=== PATIENT | female | born 1925 | race Caucasian/White ===

== ENCOUNTER 2017-02-20 08:39 | Inpatient (IN) | payer OTHER ==
[~2017-02-20] VITALS: Ht 165.1 cm; Wt 56.3 kg
[~2017-02-20 08:39] MED LIST: ASPIR-LOW81 MG PO; DAILY VALUE1 EACH PO; DOCUSATE SODIU100 MG PO; LASIX80 MG PO; LEVO-T75 MCG PO; POLYETHYLENE GL17 GM PO; PRINIVIL20 MG PO
[2017-02-20 09:35] LABS: HEMATOCRIT ND % (36.0-46.0); MCV ND FL (83-99); RED BLOOD COUNT ND M/uL (3.80-5.20); WHITE BLOOD COUNT ND K/uL (4.1-10.2)
[2017-02-20 09:36] LABS: EOSINOPHIL (%) ND % (0-5); MCH ND PG (29.0-34.0); MCHC ND G/DL (30.0-36.0); MONOCYTE (%) ND % (3-12); NEUTROPHIL (%) ND % (45-76); RBC DIS.WIDTH-CV ND % (11.8-14.6); RBC DIS.WIDTH-SD ND % (39-53)
[2017-02-20 09:37] LABS: BASOPHIL COUNT ND K/uL (0-0.1); EOSINOPHIL COUNT ND K/uL (0-0.3); IMMATURE GRANULOCYTE (%) ND % (0.0-0.7); IMMATURE GRANULOCYTE COUNT ND K/uL; INSTRUMENT ABS NEUTROPHIL CT ND K/uL; LYMPHOCYTE COUNT ND K/uL (1.0-2.8); MONOCYTE COUNT ND K/uL (0-0.8); NEUTROPHIL COUNT ND K/uL (1.8-6.4); NRBC (%) ND /100 WBC (0-0)
[2017-02-20 09:38] LABS: CHLORIDE 105 mEq/L (99-109); POTASSIUM 3.8 mEq/L (3.7-5.4); SODIUM 138 mEq/L (136-147)
[2017-02-20 09:40] LABS: GLUCOSE 137 mg/dL (70-99)
[2017-02-20 09:42] LABS: ANION GAP 12 MEQ/L (2-14)
[2017-02-20 09:44] LABS: GFR ESTIMATE (CALCULATED) 38 mL/min/
[2017-02-20 09:45] LABS: UREA NITROGEN (BUN) 35 mg/dL (9-23)
[2017-02-20 09:49] LABS: INFLUENZA A VIRAL ANTIGEN POSITIVE; INFLUENZA B VIRAL ANTIGEN NEGATIVE
[2017-02-20 09:50] LABS: TROP-I INTERPRETATION NEGATIVE; TROPONIN-I 0.01 ng/mL (0.0-0.30)
[2017-02-20 10:13] LABS: INTER. NORMALIZED RATIO ND; PROTHROMBIN TIME ND (9.2-11.2); PTT ND (25-32)
[2017-02-20 10:15] LABS: BASOPHIL COUNT 0.1 K/uL (0-0.1); EOSINOPHIL (%) 0.6 % (0-5); HEMATOCRIT 42.2 % (36.0-46.0); IMMATURE GRANULOCYTE (%) 0.8 % (0.0-0.7); INSTRUMENT ABS NEUTROPHIL CT 3.9 K/uL; LYMPHOCYTE COUNT 0.4 K/uL (1.0-2.8); MCH 31.8 PG (29.0-34.0); MCHC 32.7 G/DL (30.0-36.0); MCV 97.2 FL (83-99); MEAN PLAT.VOLUME 11.1 uM^3 (9.5-12.4); MONOCYTE (%) 13.9 % (3-12); MONOCYTE COUNT 0.7 K/uL (0-0.8); NEUTROPHIL (%) 75.2 % (45-76); NEUTROPHIL COUNT 3.9 K/uL (1.8-6.4); PLATELET COUNT 148 K/uL (156-360); RBC DIS.WIDTH-SD 50.7 % (39-53); RED BLOOD COUNT 4.34 M/uL (3.80-5.20); WHITE BLOOD COUNT 5.2 K/uL (4.1-10.2)
[2017-02-20 10:30] LABS: INTER. NORMALIZED RATIO 1.2; PROTHROMBIN TIME 11.8 (9.2-11.2); PTT 23.6 (25-32)
[2017-02-20] MEDS ORDERED: PROAIR HFA8.5 GM IH (11:35)
[2017-02-20] MEDS ORDERED: PRINZIDE 10-121 EACH PO (11:44)
[2017-02-20] MEDS ORDERED: COLACE100 MG PO (11:47)
[2017-02-20 14:09] VITALS: BP 154/78
[2017-02-20 14:13] VITALS: BP 185/91
[2017-02-20 18:16] LABS: TROP-I INTERPRETATION NEGATIVE; TROPONIN-I 0.03 ng/mL (0.0-0.30)
[2017-02-20 19:50] VITALS: BP 122/70
[2017-02-21] VITALS (7 sets, daily range): BP systolic 98–180; BP diastolic 60–94
[2017-02-21 00:59] LABS: BILIRUBIN NEGATIVE; BLOOD NEGATIVE; COLOR YELLOW ((YELLOW)); GLUCOSE (STRIP) NEGATIVE; KETONES NEGATIVE; LEUKOCYTES NEGATIVE; NITRITE NEGATIVE; PROTEIN (STRIP) NEGATIVE; SPECIFIC GRAVITY 1.016 (1.000-1.030); UROBILINOGEN 0.2 MG/DL (0.2-1.0)
[2017-02-21 01:05] LABS: ADD MIUA? NO; UCUL ADDED? NO
[2017-02-21 01:52] LABS: TROP-I INTERPRETATION NEGATIVE; TROPONIN-I 0.01 ng/mL (0.0-0.30)
[2017-02-21 07:30] LABS: ANION GAP 8 MEQ/L (2-14); CHLORIDE 104 MEQ/L (99-109); GFR ESTIMATE (CALCULATED) 45 mL/min/; POTASSIUM 3.6 MEQ/L (3.7-5.4); SAMPLE HEMOLYSIS CHECK 0; SAMPLE ICTERIC CHECK 0; SAMPLE LIPEMIA CHECK 0; SODIUM 137 MEQ/L (136-147); UREA NITROGEN (BUN) 29 mg/dL (9-23)
[2017-02-21 07:31] LABS: GLUCOSE 92 mg/dL (70-99)
[2017-02-22 00:09] VITALS: BP 140/69
[2017-02-22 04:25] VITALS: BP 148/81
[2017-02-22 09:00] VITALS: BP 180/98
[2017-02-22 12:05] VITALS: BP 148/76
[2017-02-22 12:14] LABS: HEMATOCRIT 38.7 % (36.0-46.0); MCH 31.5 PG (29.0-34.0); MCHC 31.3 G/DL (30.0-36.0); MCV 100.8 FL (83-99); MEAN PLAT.VOLUME 12.6 uM^3 (9.5-12.4); PLATELET COUNT 154 K/uL (156-360); RBC DIS.WIDTH-SD 55.9 % (39-53); RED BLOOD COUNT 3.84 M/uL (3.80-5.20)
[2017-02-22 15:45] VITALS: BP 142/73
[2017-02-22 20:20] VITALS: BP 142/74
[2017-02-23 00:45] VITALS: BP 142/64
[2017-02-23 05:15] VITALS: BP 138/72
[2017-02-23 09:40] VITALS: BP 146/89
[2017-02-23 12:48] VITALS: BP 148/75
[2017-02-23 19:45] VITALS: BP 136/85
[2017-02-23 23:46] VITALS: BP 177/82
[2017-02-24 05:14] VITALS: BP 189/91
[2017-02-24 05:21] VITALS: BP 140/86
[2017-02-24 07:31] LABS: ANION GAP 12 MEQ/L (2-14); CHLORIDE 98 MEQ/L (99-109); GFR ESTIMATE (CALCULATED) 28 mL/min/; GLUCOSE 127 mg/dL (70-99); MAGNESIUM 2.9 mg/dl (1.3-2.7); POTASSIUM 4.1 MEQ/L (3.7-5.4); SAMPLE HEMOLYSIS CHECK 0; SAMPLE ICTERIC CHECK 0; SAMPLE LIPEMIA CHECK 0; SODIUM 136 MEQ/L (136-147)
[2017-02-24 07:34] LABS: UREA NITROGEN (BUN) 56 mg/dL (9-23)
[2017-02-24 07:36] LABS: EOSINOPHIL (%) 0.1 % (0-5); HEMATOCRIT 40.4 % (36.0-46.0); IMMATURE GRANULOCYTE (%) 0.4 % (0.0-0.7); INSTRUMENT ABS NEUTROPHIL CT 9.7 K/uL; LYMPHOCYTE COUNT 0.5 K/uL (1.0-2.8); MCH 31.1 PG (29.0-34.0); MCHC 32.7 G/DL (30.0-36.0); MEAN PLAT.VOLUME 12.9 uM^3 (9.5-12.4); MONOCYTE (%) 3.3 % (3-12); MONOCYTE COUNT 0.4 K/uL (0-0.8); NEUTROPHIL (%) 91.9 % (45-76); NEUTROPHIL COUNT 9.7 K/uL (1.8-6.4); PLATELET COUNT 150 K/uL (156-360); RBC DIS.WIDTH-CV 14.2 % (11.8-14.6); RBC DIS.WIDTH-SD 49.5 % (39-53); RED BLOOD COUNT 4.25 M/uL (3.80-5.20)
[2017-02-24 07:42] LABS: MCV 95.1 FL (83-99); WHITE BLOOD COUNT 10.5 K/uL (4.1-10.2)
[2017-02-24 08:03] LABS: PLAT.SUFFICIENCY ADEQUATE
[2017-02-24 08:37] VITALS: BP 126/84
[2017-02-24 17:25] VITALS: BP 121/78
[2017-02-24 20:09] VITALS: BP 126/73
[2017-02-25 00:18] VITALS: BP 117/65
[2017-02-25 04:34] VITALS: BP 156/70
[2017-02-25 06:50] LABS: EOSINOPHIL (%) 0 % (0-5); HEMATOCRIT 40.2 % (36.0-46.0); IMMATURE GRANULOCYTE (%) 0.6 % (0.0-0.7); IMMATURE GRANULOCYTE COUNT 0.1 K/uL; INSTRUMENT ABS NEUTROPHIL CT 8.1 K/uL; LYMPHOCYTE COUNT 0.7 K/uL (1.0-2.8); MCH 31.7 PG (29.0-34.0); MCHC 33.6 G/DL (30.0-36.0); MCV 94.4 FL (83-99); MONOCYTE COUNT 0.8 K/uL (0-0.8); NEUTROPHIL (%) 84.4 % (45-76); NEUTROPHIL COUNT 8.1 K/uL (1.8-6.4); PLATELET COUNT 192 K/uL (156-360); RBC DIS.WIDTH-CV 14.3 % (11.8-14.6); RBC DIS.WIDTH-SD 49.5 % (39-53); RED BLOOD COUNT 4.26 M/uL (3.80-5.20); WHITE BLOOD COUNT 9.6 K/uL (4.1-10.2)
[2017-02-25 07:48] LABS: ANION GAP 11 MEQ/L (2-14); CHLORIDE 102 MEQ/L (99-109); GFR ESTIMATE (CALCULATED) 32 mL/min/; SAMPLE HEMOLYSIS CHECK 0; SAMPLE ICTERIC CHECK 0; SAMPLE LIPEMIA CHECK 0; SODIUM 138 MEQ/L (136-147); UREA NITROGEN (BUN) 54 mg/dL (9-23)
[2017-02-25 07:49] LABS: GLUCOSE 88 mg/dL (70-99); POTASSIUM 3.1 MEQ/L (3.7-5.4)
[2017-02-25 12:00] VITALS: BP 110/63
[2017-02-25 16:51] VITALS: BP 109/62
[2017-02-25 21:00] VITALS: BP 99/54
[2017-02-26 00:49] VITALS: BP 136/91
[2017-02-26 03:32] VITALS: BP 100/50
[2017-02-26 07:10] LABS: ANION GAP 8 MEQ/L (2-14); CHLORIDE 105 MEQ/L (99-109); GFR ESTIMATE (CALCULATED) 35 mL/min/; GLUCOSE 99 mg/dL (70-99); SAMPLE HEMOLYSIS CHECK 0; SAMPLE ICTERIC CHECK 0; SAMPLE LIPEMIA CHECK 0; SODIUM 138 MEQ/L (136-147); UREA NITROGEN (BUN) 51 mg/dL (9-23)
[2017-02-26 08:07] VITALS: BP 162/93
[2017-02-26 17:00] VITALS: BP 135/88
[2017-02-26 19:24] VITALS: BP 125/81
[2017-02-27 00:07] VITALS: BP 142/86
[2017-02-27 04:30] VITALS: BP 146/87
[2017-02-27 05:37] VITALS: BP 174/83
[2017-02-27 06:53] LABS: EOSINOPHIL (%) 0 % (0-5); HEMATOCRIT 40.7 % (36.0-46.0); IMMATURE GRANULOCYTE (%) 0.9 % (0.0-0.7); IMMATURE GRANULOCYTE COUNT 0.1 K/uL; INSTRUMENT ABS NEUTROPHIL CT 5.2 K/uL; LYMPHOCYTE COUNT 0.3 K/uL (1.0-2.8); MCH 31.1 PG (29.0-34.0); MCHC 33.2 G/DL (30.0-36.0); MCV 93.8 FL (83-99); MEAN PLAT.VOLUME 11.9 uM^3 (9.5-12.4); MONOCYTE (%) 4.1 % (3-12); MONOCYTE COUNT 0.2 K/uL (0-0.8); NEUTROPHIL COUNT 5.2 K/uL (1.8-6.4); PLATELET COUNT 165 K/uL (156-360); RBC DIS.WIDTH-SD 48.4 % (39-53); RED BLOOD COUNT 4.34 M/uL (3.80-5.20)
[2017-02-27 06:54] LABS: WHITE BLOOD COUNT 5.8 K/uL (4.1-10.2)
[2017-02-27 07:07] LABS: ALKALINE PHOSPHATASE 33 IU/L (3-129); ANION GAP 8 MEQ/L (2-14); CHLORIDE 106 MEQ/L (99-109); GFR ESTIMATE (CALCULATED) 35 mL/min/; GLUCOSE 143 mg/dL (70-99); POTASSIUM 3.6 MEQ/L (3.7-5.4); SAMPLE HEMOLYSIS CHECK 0; SAMPLE ICTERIC CHECK 0; SAMPLE LIPEMIA CHECK 0; SODIUM 139 MEQ/L (136-147); TOTAL BILIRUBIN 0.6 MG/DL (0.0-1.0); UREA NITROGEN (BUN) 46 mg/dL (9-23)
[2017-02-27 12:22] VITALS: BP 164/75
[2017-02-27 16:04] VITALS: BP 167/84
[2017-02-27 18:29] VITALS: BP 138/91
[2017-02-28 00:04] VITALS: BP 150/90
[2017-02-28 07:39] LABS: EOSINOPHIL (%) 0 % (0-5); HEMATOCRIT 41.3 % (36.0-46.0); IMMATURE GRANULOCYTE (%) 1.1 % (0.0-0.7); IMMATURE GRANULOCYTE COUNT 0.1 K/uL; INSTRUMENT ABS NEUTROPHIL CT 8.4 K/uL; LYMPHOCYTE COUNT 0.4 K/uL (1.0-2.8); MCH 31.5 PG (29.0-34.0); MCHC 33.4 G/DL (30.0-36.0); MCV 94.3 FL (83-99); MEAN PLAT.VOLUME 11.5 uM^3 (9.5-12.4); MONOCYTE (%) 5.8 % (3-12); MONOCYTE COUNT 0.6 K/uL (0-0.8); NEUTROPHIL (%) 88.4 % (45-76); NEUTROPHIL COUNT 8.4 K/uL (1.8-6.4); PLATELET COUNT 199 K/uL (156-360); RBC DIS.WIDTH-CV 14.2 % (11.8-14.6); RBC DIS.WIDTH-SD 49.1 % (39-53); RED BLOOD COUNT 4.38 M/uL (3.80-5.20); WHITE BLOOD COUNT 9.5 K/uL (4.1-10.2)
[2017-02-28 07:59] LABS: ALKALINE PHOSPHATASE 37 IU/L (3-129); ANION GAP 9 MEQ/L (2-14); CHLORIDE 106 MEQ/L (99-109); GFR ESTIMATE (CALCULATED) 45 mL/min/; GLUCOSE 138 mg/dL (70-99); SAMPLE HEMOLYSIS CHECK 0; SAMPLE ICTERIC CHECK 0; SAMPLE LIPEMIA CHECK 0; SODIUM 139 MEQ/L (136-147); TOTAL BILIRUBIN 0.6 MG/DL (0.0-1.0); UREA NITROGEN (BUN) 43 mg/dL (9-23)
[2017-02-28 08:35] VITALS: BP 164/91
[2017-02-28 16:28] VITALS: BP 148/74
[2017-03-01 00:12] VITALS: BP 125/84
[2017-03-01 08:05] VITALS: BP 170/105
[2017-03-01 11:35] VITALS: BP 133/86
[2017-03-01 16:22] VITALS: BP 123/77
[2017-03-02 00:09] VITALS: BP 155/82
[2017-03-02 07:18] LABS: EOSINOPHIL (%) 0 % (0-5); HEMATOCRIT 36.3 % (36.0-46.0); IMMATURE GRANULOCYTE COUNT 0.2 K/uL; INSTRUMENT ABS NEUTROPHIL CT 6.9 K/uL; LYMPHOCYTE COUNT 0.4 K/uL (1.0-2.8); MCH 31.2 PG (29.0-34.0); MCHC 32.8 G/DL (30.0-36.0); MEAN PLAT.VOLUME 11.4 uM^3 (9.5-12.4); MONOCYTE (%) 6.7 % (3-12); MONOCYTE COUNT 0.5 K/uL (0-0.8); NEUTROPHIL COUNT 6.9 K/uL (1.8-6.4); PLATELET COUNT 200 K/uL (156-360); RBC DIS.WIDTH-CV 14.5 % (11.8-14.6); RBC DIS.WIDTH-SD 49.6 % (39-53); RED BLOOD COUNT 3.82 M/uL (3.80-5.20)
[2017-03-02 07:48] LABS: ANION GAP 7 MEQ/L (2-14); CHLORIDE 110 MEQ/L (99-109); GFR ESTIMATE (CALCULATED) 50 mL/min/; GLUCOSE 132 mg/dL (70-99); SAMPLE HEMOLYSIS CHECK 0; SAMPLE ICTERIC CHECK 0; SAMPLE LIPEMIA CHECK 0; SODIUM 141 MEQ/L (136-147); UREA NITROGEN (BUN) 40 mg/dL (9-23)
[2017-03-02 08:47] VITALS: BP 135/78
[2017-03-02] MEDS ORDERED: MUCINEX600 MG PO (15:34)
[2017-03-02] MEDS ORDERED: COLACE100 MG PO (15:35)
[2017-03-02] MEDS ORDERED: PREDNISONE20 MG PO (15:36)
[2017-03-02] MEDS ORDERED: LEVOFLOXACIN750 MG PO (15:40)
[2017-03-02] MEDS ORDERED: SENNA-DOCUSATE1 EAC1 PO (15:41)
[2017-03-02 16:01] VITALS: BP 131/74
== END 2017-03-02 18:20 | disposition home health service (06) | DRG 193 ==
LOC: EME → EDBD 08:39 → EDOF 12:10 → 5WEST 12:10 → 5SOUTH 02-27 17:51
PROVIDERS: Emergency Medicine; Hospitalist; Internal Medicine
DX: J10.1 Influenza due to other identified influenza virus with other respiratory manifestations (principal); J96.01 Acute respiratory failure with hypoxia; J20.9 Acute bronchitis, unspecified; I12.9 Hypertensive chronic kidney disease with stage 1 through stage 4 chronic kidney disease, or unspecified chronic kidney disease; N18.3 Chronic kidney disease, stage 3 (moderate); E03.9 Hypothyroidism, unspecified; I48.0 Paroxysmal atrial fibrillation; F03.90 Unspecified dementia, unspecified severity, without behavioral disturbance, psychotic disturbance, mood disturbance, and anxiety; R32 Unspecified urinary incontinence; K59.8 Other specified functional intestinal disorders; K59.00 Constipation, unspecified; E87.6 Hypokalemia
CPT/HCPCS: 71010; 71020; 71250; 74176; 74230; 80048; 80053; 81003; 83735; 83880; 84484; 85025; 85025 91; 85027; 85610; 85730; 87502; 92610 GN; 92611 GN; 93005; 94010; 94640; 94640 76; 94667; 94668; 94760; 94799; 97530 GP; 99202; 99281; 99285; G0378; J0360; J1364; J1644; J1956; J2930; J3480; J7030; J7040; J7050; J7512; J7644

== ENCOUNTER 2017-04-08 12:09 | Inpatient (IN) | payer OTHER ==
[~2017-04-08] VITALS: Ht 160 cm; Wt 56.9 kg
[~2017-04-08 12:09] MED LIST changes: +COLACE100 MG PO; +LEVOFLOXACIN750 MG PO; +MUCINEX600 MG PO; +PREDNISONE20 MG PO; +PRINZIDE 10-121 EACH PO; +PROAIR HFA8.5 GM IH; +SENNA-DOCUSATE1 EAC1 PO
[2017-04-08 14:10] LABS: ADD MIUA? NO; BILIRUBIN NEGATIVE; BLOOD NEGATIVE; COLOR YELLOW ((YELLOW)); GLUCOSE (STRIP) NEGATIVE; KETONES NEGATIVE; LEUKOCYTES NEGATIVE; NITRITE NEGATIVE; PROTEIN (STRIP) NEGATIVE; SPECIFIC GRAVITY 1.011 (1.000-1.030); UCUL ADDED? NO; UROBILINOGEN 0.2 MG/DL (0.2-1.0)
[2017-04-08 14:30] LABS: BASOPHIL COUNT 0.1 K/uL (0-0.1); EOSINOPHIL (%) 0.3 % (0-5); HEMATOCRIT 40.2 % (36.0-46.0); IMMATURE GRANULOCYTE (%) 0.8 % (0.0-0.7); IMMATURE GRANULOCYTE COUNT 0.1 K/uL; INSTRUMENT ABS NEUTROPHIL CT 12.7 K/uL; LYMPHOCYTE COUNT 0.6 K/uL (1.0-2.8); MCH 32.7 PG (29.0-34.0); MCHC 32.3 G/DL (30.0-36.0); MEAN PLAT.VOLUME 10.9 uM^3 (9.5-12.4); MONOCYTE (%) 6.3 % (3-12); MONOCYTE COUNT 0.9 K/uL (0-0.8); NEUTROPHIL (%) 88.3 % (45-76); NEUTROPHIL COUNT 12.7 K/uL (1.8-6.4); PLATELET COUNT 232 K/uL (156-360); RBC DIS.WIDTH-CV 15.2 % (11.8-14.6); RED BLOOD COUNT 3.98 M/uL (3.80-5.20); WHITE BLOOD COUNT 14.4 K/uL (4.1-10.2)
[2017-04-08 14:43] LABS: CHLORIDE 106 mEq/L (99-109); POTASSIUM 3.7 mEq/L (3.7-5.4); SODIUM 142 mEq/L (136-147)
[2017-04-08 14:46] LABS: GLUCOSE 162 mg/dL (70-99)
[2017-04-08 14:47] LABS: ANION GAP 11 MEQ/L (2-14); TOTAL BILIRUBIN 0.8 mg/dL (0.0-1.0)
[2017-04-08 14:49] LABS: ALKALINE PHOSPHATASE 57 IU/L (3-129); GFR ESTIMATE (CALCULATED) 45 mL/min/
[2017-04-08 14:50] LABS: UREA NITROGEN (BUN) 24 mg/dL (9-23)
[2017-04-08 14:52] LABS: TROP-I INTERPRETATION NEGATIVE; TROPONIN-I 0.08 ng/mL (0.0-0.30)
[2017-04-08] MEDS ORDERED: DOCUSATE SODIU100 MG PO (15:37)
[2017-04-08] MEDS ORDERED: MIRALAX255 GM PO (15:37)
[2017-04-08] MEDS ORDERED: LO-DOSE ASPIRIN81 M1 PO (15:37)
[2017-04-08] MEDS ORDERED: LASIX20 MG PO (15:38)
[2017-04-08 18:29] VITALS: BP 158/81
[2017-04-08 20:00] VITALS: BP 114/76
[2017-04-09 01:39] LABS: TROP-I INTERPRETATION INDETERMINATE; TROPONIN-I 0.55 ng/mL (0.0-0.30)
[2017-04-09 03:53] VITALS: BP 147/80
[2017-04-09 07:45] VITALS: BP 160/87
[2017-04-09 07:51] LABS: TROP-I INTERPRETATION INDETERMINATE
[2017-04-09 08:00] LABS: HEMATOCRIT 34.7 % (36.0-46.0); MCH 32.6 PG (29.0-34.0); MCHC 32.6 G/DL (30.0-36.0); MEAN PLAT.VOLUME 11.3 uM^3 (9.5-12.4); PLATELET COUNT 187 K/uL (156-360); RBC DIS.WIDTH-CV 15.3 % (11.8-14.6); RBC DIS.WIDTH-SD 56.7 % (39-53); RED BLOOD COUNT 3.47 M/uL (3.80-5.20)
[2017-04-09 08:03] LABS: WHITE BLOOD COUNT 5.8 K/uL (4.1-10.2)
[2017-04-09 11:10] VITALS: BP 155/75
[2017-04-09 17:14] VITALS: BP 141/83
[2017-04-09 19:28] VITALS: BP 129/81
[2017-04-09 23:48] VITALS: BP 153/82
[2017-04-10 04:12] VITALS: BP 157/79
[2017-04-10 05:25] LABS: BASOPHIL COUNT 0.1 K/uL (0-0.1); EOSINOPHIL COUNT 0.3 K/uL (0-0.3); HEMATOCRIT 33.5 % (36.0-46.0); IMMATURE GRANULOCYTE (%) 0.3 % (0.0-0.7); INSTRUMENT ABS NEUTROPHIL CT 4.3 K/uL; LYMPHOCYTE COUNT 0.8 K/uL (1.0-2.8); MCH 32.6 PG (29.0-34.0); MCHC 32.5 G/DL (30.0-36.0); MCV 100.3 FL (83-99); MEAN PLAT.VOLUME 11.5 uM^3 (9.5-12.4); MONOCYTE (%) 11.5 % (3-12); MONOCYTE COUNT 0.7 K/uL (0-0.8); NEUTROPHIL (%) 69.8 % (45-76); NEUTROPHIL COUNT 4.3 K/uL (1.8-6.4); PLATELET COUNT 184 K/uL (156-360); RBC DIS.WIDTH-CV 15.4 % (11.8-14.6); RBC DIS.WIDTH-SD 56.9 % (39-53); RED BLOOD COUNT 3.34 M/uL (3.80-5.20); WHITE BLOOD COUNT 6.2 K/uL (4.1-10.2)
[2017-04-10 06:23] LABS: ANION GAP 8 MEQ/L (2-14); CHLORIDE 109 MEQ/L (99-109); GFR ESTIMATE (CALCULATED) 50 mL/min/; SAMPLE HEMOLYSIS CHECK 0; SAMPLE ICTERIC CHECK 0; SAMPLE LIPEMIA CHECK 0; SODIUM 141 MEQ/L (136-147); UREA NITROGEN (BUN) 28 mg/dL (9-23)
[2017-04-10 06:25] LABS: GLUCOSE 83 mg/dL (70-99); POTASSIUM 2.9 MEQ/L (3.7-5.4)
[2017-04-10 07:49] VITALS: BP 171/82
[2017-04-10 11:19] VITALS: BP 155/72
[2017-04-10 15:32] VITALS: BP 148/79
[2017-04-10 19:28] VITALS: BP 147/82
[2017-04-10 23:24] VITALS: BP 145/89
[2017-04-11 03:59] VITALS: BP 131/98
[2017-04-11 04:14] LABS: C DIFF TOXIN NEGATIVE (NEGATIVE)
[2017-04-11 04:25] LABS: PROBE CHECK PASS; SPECIMEN PROCESSING CONTROL PASS
[2017-04-11 08:49] VITALS: BP 168/85
[2017-04-11 10:44] VITALS: BP 169/11
[2017-04-11 10:52] LABS: ANION GAP 9 MEQ/L (2-14); CHLORIDE 111 MEQ/L (99-109); GFR ESTIMATE (CALCULATED) 55 mL/min/; GLUCOSE 121 mg/dL (70-99); SAMPLE HEMOLYSIS CHECK 0; SAMPLE ICTERIC CHECK 0; SAMPLE LIPEMIA CHECK 0; SODIUM 142 MEQ/L (136-147); UREA NITROGEN (BUN) 23 mg/dL (9-23)
[2017-04-11 10:58] LABS: POTASSIUM 3.5 MEQ/L (3.7-5.4)
[2017-04-11 18:00] VITALS: BP 176/105
[2017-04-11 20:05] VITALS: BP 123/70
[2017-04-12 00:15] VITALS: BP 118/72
[2017-04-12 03:59] VITALS: BP 136/75
[2017-04-12 08:00] VITALS: BP 175/79
[2017-04-12 11:47] VITALS: BP 142/87
[2017-04-12 15:05] VITALS: BP 133/81
[2017-04-12 19:27] VITALS: BP 144/90
[2017-04-13] VITALS (8 sets, daily range): BP systolic 110–171; BP diastolic 75–88
[2017-04-13 05:49] LABS: BASOPHIL COUNT 0.1 K/uL (0-0.1); EOSINOPHIL (%) 3.9 % (0-5); EOSINOPHIL COUNT 0.3 K/uL (0-0.3); HEMATOCRIT 36.9 % (36.0-46.0); IMMATURE GRANULOCYTE (%) 0.5 % (0.0-0.7); INSTRUMENT ABS NEUTROPHIL CT 5.5 K/uL; LYMPHOCYTE COUNT 0.9 K/uL (1.0-2.8); MCH 33.2 PG (29.0-34.0); MCHC 32.8 G/DL (30.0-36.0); MCV 101.1 FL (83-99); MEAN PLAT.VOLUME 11.5 uM^3 (9.5-12.4); MONOCYTE (%) 10.9 % (3-12); MONOCYTE COUNT 0.8 K/uL (0-0.8); NEUTROPHIL (%) 71.3 % (45-76); NEUTROPHIL COUNT 5.5 K/uL (1.8-6.4); PLATELET COUNT 206 K/uL (156-360); RBC DIS.WIDTH-CV 15.2 % (11.8-14.6); RED BLOOD COUNT 3.65 M/uL (3.80-5.20); WHITE BLOOD COUNT 7.7 K/uL (4.1-10.2)
[2017-04-13 06:13] LABS: ANION GAP 9 MEQ/L (2-14); CHLORIDE 110 MEQ/L (99-109); GFR ESTIMATE (CALCULATED) 50 mL/min/; GLUCOSE 103 mg/dL (70-99); POTASSIUM 3.1 MEQ/L (3.7-5.4); SAMPLE HEMOLYSIS CHECK 0; SAMPLE ICTERIC CHECK 0; SAMPLE LIPEMIA CHECK 0; SODIUM 141 MEQ/L (136-147); UREA NITROGEN (BUN) 31 mg/dL (9-23)
[2017-04-14 05:01] VITALS: BP 160/90
[2017-04-14 07:42] VITALS: BP 175/82
[2017-04-14 10:51] VITALS: BP 97/67
[2017-04-14] MEDS ORDERED: LOPRESSOR25 MG PO (10:58)
[2017-04-14] MEDS ORDERED: TYLENOL EXTRA500 MG PO (11:00)
[2017-04-14] MEDS ORDERED: ULTRAM50 MG PO (11:01)
[2017-04-14 13:49] LABS: ANION GAP 11 MEQ/L (2-14); CHLORIDE 113 MEQ/L (99-109); GFR ESTIMATE (CALCULATED) 50 mL/min/; GLUCOSE 97 mg/dL (70-99); SAMPLE HEMOLYSIS CHECK 1; SAMPLE ICTERIC CHECK 0; SAMPLE LIPEMIA CHECK 0; SODIUM 143 MEQ/L (136-147); UREA NITROGEN (BUN) 35 mg/dL (9-23)
[2017-04-14 13:54] LABS: POTASSIUM 4.6 MEQ/L (3.7-5.4)
[2017-04-14 15:21] VITALS: BP 165/91
== END 2017-04-14 17:45 | DRG 871 ==
LOC: EME 12:09 → 3EAST 16:20 → EDOF 16:20 → 3EAST 17:41
PROVIDERS: Emergency Medicine; Internal Medicine; Internal Medicine Cardiovascular Disease
DX: A41.9 Sepsis, unspecified organism (principal); L03.115 Cellulitis of right lower limb; S82.831A Other fracture of upper and lower end of right fibula, initial encounter for closed fracture; I21.4 Non-ST elevation (NSTEMI) myocardial infarction; R55 Syncope and collapse; E87.6 Hypokalemia; I35.0 Nonrheumatic aortic (valve) stenosis; I48.0 Paroxysmal atrial fibrillation; E03.9 Hypothyroidism, unspecified; F03.90 Unspecified dementia, unspecified severity, without behavioral disturbance, psychotic disturbance, mood disturbance, and anxiety; I12.9 Hypertensive chronic kidney disease with stage 1 through stage 4 chronic kidney disease, or unspecified chronic kidney disease; N18.3 Chronic kidney disease, stage 3 (moderate); Z79.82 Long term (current) use of aspirin; W19.XXXA Unspecified fall, initial encounter
CPT/HCPCS: 70450; 71020; 73590; 73610; 80048; 80053; 81003; 83605; 83880; 84484; 85025; 85027; 87040; 87493; 93005; 93306; 94640; 94760; 94799; 97530 GP; 99202; 99281; 99285; J0295; J1650; J3370; J3480; J7030; J7040; J7050

== ENCOUNTER 2017-04-28 11:26 | Emergency (ER) | payer OTHER ==
[~2017-04-28] VITALS: Ht 165.1 cm; Wt 68.5 kg
[~2017-04-28 11:26] MED LIST changes: +LASIX20 MG PO; +LO-DOSE ASPIRIN81 M1 PO; +LOPRESSOR25 MG PO; +MIRALAX255 GM PO; +TYLENOL EXTRA500 MG PO; +ULTRAM50 MG PO
[2017-04-28 12:10] LABS: BASOPHIL COUNT 0.1 K/uL (0-0.1); EOSINOPHIL (%) 1.7 % (0-5); EOSINOPHIL COUNT 0.2 K/uL (0-0.3); HEMATOCRIT 40.1 % (36.0-46.0); IMMATURE GRANULOCYTE (%) 0.5 % (0.0-0.7); INSTRUMENT ABS NEUTROPHIL CT 6.7 K/uL; LYMPHOCYTE COUNT 0.7 K/uL (1.0-2.8); MCH 31.9 PG (29.0-34.0); MCHC 31.2 G/DL (30.0-36.0); MCV 102.3 FL (83-99); MEAN PLAT.VOLUME 11.3 uM^3 (9.5-12.4); MONOCYTE COUNT 0.9 K/uL (0-0.8); NEUTROPHIL COUNT 6.7 K/uL (1.8-6.4); PLATELET COUNT 252 K/uL (156-360); RBC DIS.WIDTH-CV 15.4 % (11.8-14.6); RBC DIS.WIDTH-SD 58.1 % (39-53); RED BLOOD COUNT 3.92 M/uL (3.80-5.20); WHITE BLOOD COUNT 8.6 K/uL (4.1-10.2)
[2017-04-28 12:20] LABS: INTER. NORMALIZED RATIO 1.2; PROTHROMBIN TIME 12.6 (9.2-11.2); PTT 33.8 (25-32)
[2017-04-28 12:29] LABS: CHLORIDE 112 mEq/L (99-109); POTASSIUM 3.3 mEq/L (3.7-5.4); SODIUM 145 mEq/L (136-147)
[2017-04-28 12:30] LABS: GLUCOSE 104 mg/dL (70-99)
[2017-04-28 12:32] LABS: ANION GAP 7 MEQ/L (2-14)
[2017-04-28 12:33] LABS: TROP-I INTERPRETATION NEGATIVE; TROPONIN-I 0.04 ng/mL (0.0-0.30)
[2017-04-28 12:34] LABS: GFR ESTIMATE (CALCULATED) 50 mL/min/
[2017-04-28 12:35] LABS: UREA NITROGEN (BUN) 24 mg/dL (9-23)
[2017-04-28] MEDS ORDERED: ZITHROMAX Z-PA250 MG PO (15:44)
[2017-04-28] MEDS ORDERED: PROAIR HFA8.5 GM IH (15:44)
[2017-04-28 17:54] VITALS: BP 163/88
== END 2017-04-28 17:55 | disposition home or self-care (01) ==
LOC: EME 11:26
PROVIDERS: Emergency Medicine
DX: J20.9 Acute bronchitis, unspecified (principal); F03.90 Unspecified dementia, unspecified severity, without behavioral disturbance, psychotic disturbance, mood disturbance, and anxiety; I12.9 Hypertensive chronic kidney disease with stage 1 through stage 4 chronic kidney disease, or unspecified chronic kidney disease; N18.9 Chronic kidney disease, unspecified; Z86.718 Personal history of other venous thrombosis and embolism; Z79.01 Long term (current) use of anticoagulants
CPT/HCPCS: 71010; 71275; 80048; 84484; 85025; 85610; 85730; 93005; 94640; 99281; 99285